=== PATIENT | male | born 1970 | race Caucasian/White ===

== ENCOUNTER 2016-07-15 22:26 | Emergency (ER) | payer OTHER ==
[~2016-07-15] VITALS: Ht 172.7 cm; Wt 95.3 kg
[2016-07-15] MEDS ORDERED: METOCLOPRAMIDE 10 MG TABLET PO ONE (23:30)
[2016-07-15] MEDS ORDERED: MECLIZINE HCL 12.5 MG TABLET. PO ONE (23:30)
[2016-07-15] MEDS ORDERED: IV NORMAL SALINE 1000ML BAG 1,000 ML IV ONE (23:30)
[2016-07-16] MEDS ORDERED: MECL25TA3 PO (00:16)
--- NOTE | 2016-07-16 00:16 | PHYS DOC ---
Past Medical History Past Medical History: Anxiety, Other Additional Past Medical Histor: VERTIGO Past Surgical History: Other Additional Past Surgical Histo: SHOULDER SX, LASIC EYE Alcohol Use: None Drug Use: None Adult General Chief Complaint Chief Complaint: NAUSEA/VOMITING/DIARRHA HPI HPI 46-year-old male presenting the emergency department today with vertigo. This started approximately 8 hours ago. It got worse approximately an hour ago. He describes the room spinning. He has history of vertigo in the past and reports his being similar. It is worse with movement. Alleviated by staying still. He denies fevers chills. He denies it being sudden in onset. Location nontender. Duration intermittent. Review of systems is negative for chest pain shortness of breath nausea vomiting diarrhea. He denies numbness weakness tingling or vision changes. All other review of systems is negative unless otherwise noted in history of present illness. Review of Systems Review of Systems SEE ABOVE. Current Medications Current Medications Current Medications Medications (Trade) Dose Ordered Sig/Tracie Start Time Stop Time Status Last Admin Dose Admin Meclizine HCl (Antivert) 25 mg 1X ONCE 07/15/16 23:30 07/15/16 23:31 DC 07/15/16 23:35 25 MG Metoclopramide HCl (Reglan) 10 mg 1X ONCE 07/15/16 23:30 07/15/16 23:31 DC 07/15/16 23:35 10 MG Sodium Chloride (Iv Sodium Chloride 0.9% 1000ml Bag) 1,000 ml @ 1,000 mls/hr 1X ONCE 07/15/16 23:30 07/16/16 00:29 DC 07/15/16 23:34 1,000 MLS/HR Allergies Allergies Allergies Coded Allergies Type Severity Reaction Last Updated Verified No Known Drug Allergies 07/15/16 No Physical Exam Physical Exam Constitutional: Well developed, well nourished, no acute distress, non-toxic appearance. HENT: Normocephalic, atraumatic, bilateral external ears normal, oropharynx moist, no oral exudates, nose normal. [] Eyes: PERRLA, EOMI, conjunctiva normal, no discharge. Neck: Normal range of motion, no tenderness, supple, no stridor. [] Cardiovascular:Heart rate regular rhythm, no murmur Lungs & Thorax: Bilateral breath sounds clear to auscultation [] Abdomen: Bowel sounds normal, soft, no tenderness, no masses, no pulsatile masses. [] Skin: Warm, dry, no erythema, no rash. Back: No tenderness, no CVA tenderness. Extremities: No tenderness, no cyanosis, no clubbing, ROM intact, no edema. [] Neurologic: Neuro exam: Mental status: Awake oriented and alert x3 Cranial nerves: Extraocular movements intact, eyebrows sharita bilaterally smile symmetric, uvula elevation, shoulder shrug intact, tongue protrusion normal. Patient has rotational lateral nystagmus to lateral gaze to the right into the left. Sensation: equal and normal in all extremities Strength: 5/5 in upper and lower extremities bilaterally Psychologic: Affect normal, judgement normal, mood normal. [] Current Patient Data Vital Signs Vital Signs Date Time Temp Pulse Resp B/P Pulse Ox O2 Delivery O2 Flow Rate FiO2 07/16/16 00:28 70 16 138/92 99 Room Air 07/15/16 22:42 97.0 97.0 EKG EKG [] Radiology/Procedures Radiology/Procedures [] Course & Med Decision Making Course & Med Decision Making Pertinent Labs and Imaging studies reviewed. (See chart for details) [] 46-year-old male presenting with vertigo. Afebrile normal heart rate. Otherwise normal vital signs. Pertinent physical exam findings showed lateral nystagmus with rotation suggestive of a peripheral vertigo. Otherwise normal neurologic exam. The patient's vertigo was treated with meclizine and Reglan with IV fluids. On reevaluation he had improved. He was subsequent discharged home to follow up with his primary care doctor, a vertigo physical therapist, and an ENT doctor within a week. Dragon Disclaimer Dragon Disclaimer This electronic medical record was generated, in whole or in part, using a voice recognition dictation system. Departure Departure Impression: Primary Impression: Vertigo Disposition: 01 HOME, SELF-CARE Condition: STABLE Referrals: UNKNOWN PCP NAME (PCP) PRISCA KRUEGER MD Patient Instructions: Vertigo Additional Instructions: Thank you for allowing us to participate in your care today. Followup with your primary care physician in 3 days and an ENT doctor within the next week. If you do not have a primary care provider you can ask for a list of our primary care providers. Return to the emergency department you have any new or concerning findings. This should be evaluated by the primary care physician and any necessary consulting services for continued management within a few days after discharge. Return to emergency room if you have any new or concerning symptoms including but not limited to fever, chills, nausea, vomiting, intractable pain, any new rashes, chest pain, shortness of air, uncontrolled bleeding, difficulty breathing, and/or vision loss. You may have been prescribed medication that can change in your level of thinking and ability to operate machinery. These medications include hydrocodone and Ativan. Also, Benadryl has been known to do this as well. Be sure to check with your pharmacist and ask if the medications you've prescribed can affect your level of consciousness. I recommend not operating heavy machinery or driving while on medication such as these. Scripts Meclizine Hcl 25 Mg [id number] Mg PO PRN Q24HRS PRN DIZZINESS #10 TAB Prov:HIMANSHU VIVAS MD 07/16/16 HIMANSHU VIVAS MD Jul 16, 2016 00:16
[2016-07-16 00:28] VITALS: BP 138/92
== END 2016-07-16 00:45 | disposition home or self-care (01) ==
LOC: ER 22:26
DX: R42 Dizziness and giddiness (principal); F41.9 Anxiety disorder, unspecified
CPT/HCPCS: 96360; 99284; J7030; J8597